=== PATIENT | male | born 1975 | race Caucasian/White ===

== ENCOUNTER 2019-10-23 22:11 | Emergency (ER) | payer OTHER ==
[~2019-10-23] VITALS: Ht 190.5 cm; Wt 131.5 kg
== END 2019-10-23 22:43 | disposition home or self-care (01) ==
LOC: ER 22:11
DX: S71.122A Laceration with foreign body, left thigh, initial encounter (principal); W33.01XA Accidental discharge of shotgun, initial encounter; Y93.89 Activity, other specified; Y92.89 Other specified places as the place of occurrence of the external cause; Y99.8 Other external cause status